=== PATIENT | male | born 1980 | race Caucasian/White ===

== ENCOUNTER 2019-07-03 18:33 | Emergency (ER) | payer BC, SELFPAY ==
[2019-07-03 18:34] VITALS: BP 139/110; PULSE 103; RESP 18; TEMP 37.3; O2SAT 96
[2019-07-03 18:35] VITALS: BP 139/110; PULSE 99; RESP 18; TEMP 37.3; O2SAT 97; BMI 30.7
--- NOTE | 2019-07-03 19:04 | EKG12_ITS ---
Test Reason : PALPS Blood Pressure : / mmHG Vent. Rate : 088 BPM Atrial Rate : 088 BPM P-R Int : 162 ms QRS Dur : 096 ms QT Int : 358 ms P-R-T Axes : 041 031 027 degrees QTc Int : 433 ms Normal sinus rhythm Possible Inferior infarct , age undetermined Abnormal ECG Confirmed by GETACHEW CORNELL ([id number]), primer expeditor and drier LADONNA FISHER ([id number]) on 07/06/2019 9:32:04 AM Referred By: CHIRAG Confirmed By:GETACHEW CORNELL
[2019-07-03 19:21] LABS: Absolute Lymphocyte Count 2.28 X10^3/uL (0.83-4.51); Basophil# 0.03 X10^3/uL; Basophil% 0.4 % (0-1); Eosinophil# 0.14 X10^3/uL; Eosinophils% 1.9 % (0-5); Hematocrit 44.4 % (40-54); Hemoglobin 15.1 g/dL (13.0-16.5); Lymphocyte # 2.28 X10^3/ul (4.0); Lymphocyte % 30.9 % (19-41); Mean Corpuscular Hgb 29.7 pg (27.0-32.0); Mean Corpuscular Volume 87.4 fL (80-94); Mean Platelet Vol. 10.5 fl (6.2-12.0); Monocyte# 0.94 X10^3/uL; Monocyte% 12.8 % (0-10); NRBC Flagged by Analyzer 0 % (0-5); Neutrophil # 3.95 X10^3/uL (2.7-7.7); Neutrophil % 53.6 % (47-70); Platelet Count 243 K/mm3 (150-450); RBC Distribution Width CV 12.6 % (11.6-14.6); RBC Distribution Width SD 40.5 fl (35.1-43.9); Red Blood Count 5.08 M/mm3 (4.6-6.2); White Blood Count 7.4 K/mm3 (4.4-11.0)
--- NOTE | 2019-07-03 19:25 | RAD_ITS ---
STUDY: X-RAY CHEST REASON FOR EXAM: Male, 39 years old. CHEST PAIN TECHNIQUE: PA and lateral views of the chest. COMPARISON: None. FINDINGS: The lungs are clear and expanded. There is no demonstrated pleural abnormality. Normal size heart. Normal mediastinum and meme. Normal visualized pulmonary arteries. Normal visualized aortic arch and descending thoracic aorta. Normal visualized thoracic spine. Normal visualized ribs, clavicles, and shoulders. There is no demonstrated abnormality of the visualized soft tissue structures of the upper abdomen. RAD/Chest PA and Lateral IMPRESSION: Normal x-ray examination of the chest. Electronically Signed: John Garcia DO at 20:13 EST Tel , Service support ,
[2019-07-03 19:45] LABS: Anion Gap 6 (5-15); BUN 12 mg/dL (7-18); BUN/Creat Ratio 10.8 RATIO (10-20); Calcium,Total 8.9 mg/dL (8.5-10.1); Chloride 109 mmol/L (98-107); Creatinine, Serum 1.11 mg/dL (0.70-1.30); EST Glomerular Filtration Rate 78 mL/min (>60); Est Glom Filt Rate - Afr Amer 94 mL/min (>60); Estimated Creatinine Clearance 91.34 ml/min; Glucose 79 mg/dL (74-106); Potassium 3.5 mmol/L (3.5-5.1); Sodium Level 143 mmol/L (136-145); Thyroid Stim Hormone (TSH) 2.03 uIU/mL (0.358-3.74)
[2019-07-03 20:25] VITALS: BP 138/93; BP 140/91; BP 142/98; PULSE 80; PULSE 87; PULSE 90
--- NOTE | 2019-07-03 21:50 | ED.VIS.GEN ---
History of Present Illness Chief Complaint: Palpitations Informant: Patient Onset: Today Context: Sudden Onset Timing: Intermittent Narrative: Patient is a 39-year-old male with history of DVT, on Eliquis presenting with an episode of palpitations. Patient states he felt fine earlier today. He got home from work had a beer and all of a sudden he felt hot, flushed had palpitations and his face was red. He denies associated chest pain. He took his temperature is 102.8. He not take any meds prior to arrival. He denies any associated muscle aches. He notes his knees did have the flu recently. Patient came to the emergency room to be evaluated further. First he went to the urgent care but was then sent to the emergency room. He notes he has been on Eliquis for about a month for DVTs in his right lower leg. He has not missed any doses. He is never had an episode like this before. He denies any other complaints right now. Right now he states he is feeling much better. Past Medical History - Allergies and Home Meds Allergies/Adverse Reactions: Allergies kiwi Allergy (Verified 07/03/19 18:39) Angioedema LIDOCAINE TOPICAL Adverse Reaction (Uncoded 07/03/19 18:39) Other Primary Care Physician: Don Boo MD [Primary Care Provider] - Past Medical History: - - DVT Surgical History: noncontributory Lives: Spouse/ Significant Other, With Family Smoking Status: Never smoker Review of Systems General: Reports: Sweats. Denies: Chills, Fever Eyes: Denies: Visual changes - bilaterally, Diplopia ENT: Denies: Rhinorrhea, Sore throat Cardiovascular: Reports: Palpitations. Denies: Chest pain Respiratory: Denies: Dyspnea, Cough, Dyspnea on exertion Gastrointestinal: Denies: Abdominal pain, Nausea, Vomiting, Diarrhea, Melena, Hematochezia Genitourinary: Denies: Dysuria, Hematuria, Frequency Musculoskeletal: Reports: Swelling - Mild?right lower extremity x1 month. Denies: Back pain, Extremity Pain Skin: Reports: - - Facial flushing. Denies: Rash, Wounds Neurological: Denies: Headache, Weakness, Numbness Physical Exam Vital Signs/Narrative: Vital Signs Temp Pulse Pulse Pulse Pulse Resp BP 07/03/19 20:25 87 80 90 07/03/19 18:35 99.1 F 99 18 139/110 H 07/03/19 18:34 99.1 F 103 H 18 139/110 H BP BP BP Pulse Ox 07/03/19 20:25 138/93 H 142/98 H 140/91 H 07/03/19 18:35 97 07/03/19 18:34 96 Inital Vital Signs reviewed: Yes General: Well nourished, Well developed, No Acute Distress Head: Normocephalic, Atraumatic Eyes: Perrl, EOMI ENT: Moist mucous membranes, No rhinorrhea, TM's clear Neck: Supple, Nontender Cardiovascular: Regular rate, Regular rhythm, No murmurs Respiratory: No distress, CTA bilaterally, Chest nontender Abdomen: Soft, Nontender, Nondistended, Normal bowel sounds Back: Nontender, Normal Inspection Extremities: Nontender, No edema. Negative for: Edema, Calf Tenderness Skin: Normal color, No rash Neurological: Alert, Oriented x3, Cranial nerves II-XII grossly intact, Normal Strength, Normal Sensation Psychological: Normal affect, Normal Mood Diagnostic/Tx/Re-eval Chest X-Ray - ED: 2 View, Read by ED Physician, Read by Radiologist, No Acute Disease Clinical Impression(s) from Imaging Studies Chest X-Ray 07/03/19 19:25 IMPRESSION: Normal x-ray examination of the chest. Electronically Signed: John Garcia DO at 20:13 EST Tel , Service support , Laboratory Data 07/03/19 07/03/19 19:00 19:00 WBC 7.4 RBC 5.08 Hgb 15.1 Hct 44.4 MCV 87.4 MCH 29.7 MCHC 34.0 RDW Std Deviation 40.5 RDW Coeff of Noah 12.6 Plt Count 243 MPV 10.5 Immature Gran % (Auto) 0.400 Neut % (Auto) 53.6 Lymph % (Auto) 30.9 [place] % (Auto) 12.8 H Eos % (Auto) 1.9 Baso % (Auto) 0.4 Absolute Neuts (auto) 4.0 Absolute Lymphs (auto) 2.28 Nucleated RBC % 0 Sodium 143 Potassium 3.5 Chloride 109 H Carbon Dioxide 28.0 Anion Gap 6 BUN 12 Creatinine 1.11 Estim Creat Clear Calc 91.34 Est GFR (MDRD) Af Amer 94 Est GFR (MDRD) Non-Af 78 BUN/Creatinine Ratio 10.8 Glucose 79 Calcium 8.9 Troponin I < 0.015 TSH 2.03 - Rhythm Strip Rhythm Strip: Sinus Rhythm Rate: 88 Ectopy: None - Medical Decision Making Patient is evaluated after an episode of palpitations and flushing. He is currently asymptomatic. He has normal vital signs. He appears nontoxic and in no acute distress. I did check CBC, BMP, EKG, troponin, TSH and chest x-ray. These are all unremarkable do not explain his symptoms. His flu swab is negative. I do not suspect this is a PE. For 1 patient is not have any associated chest pain or shortness of breath. In addition he has been compliant with his Eliquis for a month now. He is not hypoxic and has normal vital signs. He did show me a picture of his face when this episode happened and he was quite red and almost splotchy. He is not had any new medications to suggest an allergic reaction. Patient is counseled that at this time I think he is stable for outpatient follow-up. He is counseled that the differential does include a pheochromocytoma. He will follow-up with his PCP. Patient is counseled on signs and symptoms requiring return to the emergency room. Patient verbalizes agreement and understand this plan. Patient discharged home in stable and improved condition. ED Disposition - Plan for ED Patient: Disposition: Home or Assisted Living Diagnosis: Palpitations with regular cardiac rhythm Instructions: Palpitations Referrals: oDn Boo MD [Primary Care Provider] - Additional Instructions: You have been seen for an episode of flushing and palpitations. Your work-up today was normal. Not sure what caused it. I do think you are stable to follow-up with your primary care doctor. Return if you develop chest pain, shortness of breath or worsening symptoms. Ask your primary care doctor for further evaluation for palpitations, cardiac arrhythmia or possibly a pheochromocytoma would be indicated.
[2019-07-03 22:15] VITALS: BP 147/95; PULSE 80; RESP 16; O2SAT 100
== END 2019-07-03 22:31 | disposition home or self-care (01) ==
PROVIDERS: Emergency Provider Emergency Medicine; PCP Family Medicine
DX: R00.2 Palpitations (principal); Z86.718 Personal history of other venous thrombosis and embolism; Z79.02 Long term (current) use of antithrombotics/antiplatelets
CPT/HCPCS: 71046; 80048; 84443; 84484; 85025; 87804; 93005; 99285

== ENCOUNTER 2019-12-18 17:06 | Emergency (ER) | payer BC, SELFPAY ==
[2019-12-18 17:07] VITALS: BP 137/83; PULSE 85; RESP 16; TEMP 36.9; O2SAT 97; BMI 29.5
--- NOTE | 2019-12-18 17:32 | US_ITS ---
STUDY: VENOUS DOPPLER ULTRASOUND - RIGHT LOWER EXTREMITY REASON FOR EXAM: Male, 39 years old. SWELLING, REDNESS TECHNIQUE: Ultrasound evaluation of the deep vein system to include castillo-scale imaging and compression was performed. Castillo-scale imaging and Doppler sonographic evaluation, including duplex spectral analysis and qualitative color flow sonography, was performed. COMPARISON: None. FINDINGS: Common Femoral Vein: Normal compression, spontaneity and augmentation. Normal color Doppler. Common Femoral Vein/Greater Saphenous Junction: Normal compression, spontaneity and augmentation. Normal color Doppler. Deep Femoral Vein: Normal compression, spontaneity and augmentation. Normal color Doppler. Femoral Proximal: Normal compression, spontaneity and augmentation. Normal color Doppler. Femoral Middle: Normal compression, spontaneity and augmentation. Normal color Doppler. Femoral Distal: Normal compression, spontaneity and augmentation. Normal color Doppler. Popliteal Vein: Normal compression, spontaneity and augmentation. Normal color Doppler. A nonocclusive clot is present in the tibioperoneal trunk just above the bifurcation into the posterior tibial and peroneal veins. Posterior Tibial Vein: Normal compression, spontaneity and augmentation. Normal color Doppler. Peroneal Vein: Normal compression, spontaneity and augmentation. Normal color Doppler. The left common femoral vein was evaluated and is normal. US/Venous Duplex Imag/Limited/Uni IMPRESSION: 1. A nonocclusive clot is present in the tibioperoneal trunk just above the bifurcation into the posterior tibial and peroneal veins. N.B. : The above information has been verbally conveyed by Marcellus Aquino MD to Jeffrey Albert MD, on 12/18/2019 19:54:21 (ET). Electronically Signed: Marcellus Aquino MD at 19:55 EDT , Service support ,
--- NOTE | 2019-12-18 18:08 | ED.VISSUMM ---
- ER Visit Summary Date of Service: 12/18/19 Chief Complaint: Right calf pain History of Present Illness: The patient is a [address] Boo. He reports that he has a history of DVT in May of this year. He stopped taking his Eliquis 2 months later because of appointments that were canceled due to COVID-19. Patient reports that he has right calf pain that began again 3 days ago. He describes as an aching charley horse. 6 out of 10 when he walks 1 out of 10 at rest. Denies any paresthesias or weakness. Denies any chest pain or shortness of breath. Physical Examination: Vitals: Stable. Afebrile. General: Well-nourished and well-developed. Head: Normocephalic atraumatic. Neck: Supple, no lymphadenopathy. No JVD. Nontender. Cardiovascular: Regular rate and rhythm. No murmurs. Respiratory: No respiratory distress. Clear to auscultation bilaterally. Abdominal: Soft, nontender, nondistended, normal bowel sounds. No guarding, rebound, or peritoneal signs. Back: Nontender. Extremities: Mild tenderness palpation of his right calf with 1+ pitting edema. He has a 2+ dorsalis pedis pulse. Skin: Normal color, no rash. Neurologic: Alert and oriented ?3. Cranial nerves II through XII are intact. Normal strength and sensation. Psych: Normal affect. Test Results: Clinical Impression(s) from Imaging Studies Venous Duplex 12/18/19 17:32 IMPRESSION: 1. A nonocclusive clot is present in the tibioperoneal trunk just above the bifurcation into the posterior tibial and peroneal veins. N.B. : The above information has been verbally conveyed by Marcellus Aquino MD to Jeffrey Albert MD, on 12/18/2019 19:54:21 (ET). Electronically Signed: Marcellus Aquino MD at 19:55 EDT , Service support , ADDENDUM: 12/18/192001 IMPRESSION: 1. A nonocclusive clot is present in the tibioperoneal trunk just above the bifurcation into the posterior tibial and peroneal veins. N.B. : The above information has been verbally conveyed by Marcellus Aquino MD to Jeffrey Albert MD, on 12/18/2019 19:54:21 (ET). Electronically Signed: Marcellus Aquino MD at 19:55 EDT , Service support , Emergency Department Course and Treatment: Patient was treated with Eliquis. He refused pain medications. Treatment Plan: Patient was discussed with Dr. Kennedy. Given the recurrent nature of this clot he will be placed on Eliquis. Instructed to follow-up with Dr. Boo in a week for another exam. Return to the emergency department for any worsening symptoms. Disposition: To home in improved and stable condition. Impression: 1. Recurrent DVT. This note was generated with [employer] dictation software. It may contain incorrect words, spelling, and punctuation that were not noted in review of the chart prior to signing ED Disposition - Plan for ED Patient: Disposition: Home or Assisted Living Instructions: ED DVT Prescriptions: Apixaban [Eliquis] 5 mg PO BID #74 tab Prescription Printed Referrals: Don Boo MD [Primary Care Provider] - 1 Week
[2019-12-18] MEDS: APIXABAN 5 MG TABLET 10 MG PO (18:30)
[2019-12-18 18:32] VITALS: BP 137/83; PULSE 85; RESP 16; TEMP 36.9; O2SAT 97
== END 2019-12-18 18:44 | disposition home or self-care (01) ==
LOC: ED 18:32
PROVIDERS: Emergency Provider Emergency Medicine; PCP Family Medicine
DX: I82.451 Acute embolism and thrombosis of right peroneal vein (principal); I82.441 Acute embolism and thrombosis of right tibial vein; Z86.718 Personal history of other venous thrombosis and embolism
CPT/HCPCS: 93971; 99283

== ENCOUNTER → 2020-08-12 15:11 | Outpatient (CLI) | payer BC, SELFPAY ==
--- NOTE | 2020-08-12 15:14 | VDLE_ITS ---
Reason For Study: swelling, pain, History of multiple DVT's RIGHT GSV is normal. CFV is compressible, spontaneous, phasic, competent and demonstrates normal augmentation. FV is compressible, spontaneous, phasic, competent and demonstrates normal augmentation. POP V is compressible, spontaneous, phasic, competent and demonstrates normal augmentation. PTV is compressible. RT PerV is compressible. T/P Trunk and Soleus V are noncompressible. Varicose vein on the lateral portion of the lower leg is dilated and noncompressible. Procedure This is a venous duplex using B-mode, color flow and spectral Doppler. Exam performed in department. The exam was abbreviated due to the COVID 19 protocol. The exam was diagnostic. A preliminary report was called and/or faxed to Dr. Wilkins. Interpretation Summary Acute deep vein thrombosis is noted in the right tibio-peroneal trunk. Acute deep vein thrombosis is noted in the right soleus vein. The remainder of the right lower extremity deep venous system is patent and compressible. Valvular competence appears intact within the proximal deep venous system on the right . The right great saphenous vein appears patent and compressible segmentally. Acute superficial thrombophlebitis is noted involving a superficial varicosity on the lateral aspect of the distal right lower extremity. Ordering Physician: Gigi Wilkins Performed By: Tin Herron RVT
== END ==
LOC: CVS 15:14
PROVIDERS: PCP Family Medicine; Referring Provider Family Medicine; Visit Provider Family Medicine
DX: I82.409 Acute embolism and thrombosis of unspecified deep veins of unspecified lower extremity (principal)
CPT/HCPCS: 93971

== ENCOUNTER 2020-08-13 10:55 | Emergency (ER) | payer BC, SELFPAY ==
[2020-08-13] VITALS (7 sets, daily range): BP systolic 139–159; BP diastolic 93–112; PULSE 18–77; RESP 16–23; TEMP 37.1; O2SAT 97–100; BMI 30.9
--- NOTE | 2020-08-13 10:57 | EKG12_ITS ---
Test Reason : CP Blood Pressure : / mmHG Vent. Rate : 076 BPM Atrial Rate : 076 BPM P-R Int : 154 ms QRS Dur : 090 ms QT Int : 372 ms P-R-T Axes : 032 031 023 degrees QTc Int : 418 ms Normal sinus rhythm Inferior infarct , age undetermined Abnormal ECG Confirmed by NETTA HASTINGS, BREONNA ([id number]), editor dictionary UZMA THOMPSON ([id number]) on 08/14/2020 12:45:39 PM Referred By: Gigi Wilkins Confirmed By:BREONNA CHADWICK MD
--- NOTE | 2020-08-13 11:06 | CT_ITS ---
STUDY: CTA CHEST REASON FOR EXAM: Male, 40 years old. PE RADIATION DOSAGE (If Supplied By Facility): CTDIvol = ( 13.77 ) mGy, DLP = ( 436.94 ) mGycm TECHNIQUE: The examination was performed with the intravenous administration of IV 100mL Isovue-370. Post-processing of the angiographic images was performed, with multiplanar reformation and 3D reconstruction. Individualized dose optimization techniques were used for this CT. COMPARISON: None. FINDINGS: There are several small nonocclusive intraluminal filling defects in branches of the right lower lobe pulmonary artery. Normal thoracic aorta and visualized great vessels. There is no demonstrated aortic dissection. Normal heart and pericardium. Normal mediastinum. Normal hilar regions. Normal visualized trachea and bronchi. The lungs are well expanded. Mild degree of bibasilar atelectasis. Normal pleura. Normal chest wall structures. Normal osseous structures. Small hiatal hernia. CT/CTA Chest W/WO Contrast IMPRESSION: Nonobstructive pulmonary emboli in branches of the posterior medial segment of the right lower lobe. Increased markings at the lung bases suggestive of a atelectasis. Electronically Signed: Amos Vilchis MD at 12:20 EDT , Service support ,
--- NOTE | 2020-08-13 11:10 | ED.DCSUM_ITS ---
- ER Visit Summary Date of Service: 08/13/20 Chief Complaint: Chest pain History of Present Illness: The patient is a [address] Gigi Wilkins. He is on Eliquis for DVTs. He has never had a PE. He had a right lower extremity Doppler yesterday that shows he has a DVT in his right tibioperoneal trunk as well as right soleus. He states his last dose of Eliquis was this morning. Patient reports she has chest pain that began 15 to 20 minutes ago while he was at rest. Is a sharp pain Zeta 10 at worst and 6 out of 10 currently. States it is worsened by deep breaths. Some change with exertion. Is relieved by nothing. Reports this made him nauseated, diaphoretic, and short of breath. Physical Examination: Vitals: Stable. Afebrile. General: Well-nourished and well-developed. Head: Normocephalic atraumatic. Neck: Supple, no lymphadenopathy. No JVD. Nontender. Cardiovascular: Regular rate and rhythm. No murmurs. Respiratory: No respiratory distress. Clear to auscultation bilaterally. Abdominal: Soft, nontender, nondistended, normal bowel sounds. No guarding, r ebound, or peritoneal signs. Back: Nontender. Extremities: Mild tenderness palpation of the right calf, no edema. Skin: Normal color, no rash. Neurologic: Alert and oriented ?3. Cranial nerves II through XII are intact. Normal strength and sensation. Psych: Normal affect. Test Results: EKG is sinus at [address] changes. There is a Q wave in lead III. This is unchanged from July [id number]. CBC shows monocytes of 12. Chem-7 is normal. INR is 1.2. PTT is 26.8. Troponin is less than 0.015. Clinical Impression(s) from Imaging Studies Chest CTA 08/13/20 11:06 IMPRESSION: Nonobstructive pulmonary emboli in branches of the posterior medial segment of the right lower lobe. Increased markings at the lung bases suggestive of a atelectasis. Electronically Signed: Amos Vilchis MD at 12:20 EDT , Service support , Emergency Department Course and Treatment: Patient had an IV placed. He was given a liter normal saline. Is given morphine and Zofran IV. He is resting more comfortably. Treatment Plan: Patient was discussed with Dr. Davis who has seen him previously. Given the fact that he has developed an acute DVT on Eliquis he would like him changed to Lovenox. He also feels that the patient needs an IVC filter. Patient was then discussed with Dr. Zi Napier who currently has him in the [facility] and is placing the IVC filter. Patient was discussed with case management. His co-pay for Lovenox would be $230 per month. He states that he cannot afford this. He was then discussed with Dr. Davis again who asked that the patient be admitted to have case management make further arrangements for this. Case management in the emergency department is spoken with case management upstairs and there really is nothing further to offer her as far as help with this. I do not think that admitting him to the hospital is going to change his ability to pay for this or to get it covered. I discussed this with the patient again. He reports that he will be able to get the first 2 weeks of this failed. He has seen a vascular surgeon at [facility] and has an appointment on August to have a vein in his leg that has a vascular incompetence removed. Patient will be discharged with prescription for Lovenox and 10 Percocet. Instructed to follow-up with Dr. Davis as soon as possible for further evaluation and treatment. Return to the emergency department for any worsening symptoms. Disposition: To home in improved and stable condition. Impression: 1. PE. 2. Acute DVT right lower extremity despite Eliquis. This note was generated with [employer] dictation software. It may contain incorrect words, spelling, and punctuation that were not noted in review of the chart prior to signing ED Disposition - Plan for ED Patient: Instructions: Pulmonary Embolism Prescriptions: Enoxaparin [Lovenox] 100 mg SC BID #60 syringe Prescription Printed Oxycodone HCl/Acetaminophen [Percocet 5/325] 1 tablet PO Q6H PRN PRN 3 Days #12 tablet PRN Reason: Pain Prescription Printed Referrals: Elpidio Davis DO [STAFF PHYSICIAN] - As soon as possible
[2020-08-13] MEDS: Morphine 4 MG/ML Syringe IV ×4 (11:14→19:02)
[2020-08-13] MEDS: 0.9% Normal Saline 1,000 ML 1000 ML IV (11:14)
[2020-08-13] MEDS: Ondansetron 4 MG/2 ML Vial IV (11:14)
[2020-08-13 11:15] LABS: Absolute Lymphocyte Count 1.55 X10^3/uL (0.83-4.51); Absolute Neutrophil Count 4.3 X10^3/uL (2.0-7.7); Basophil# 0.05 X10^3/uL; Basophil% 0.7 % (0-1); Eosinophil# 0.11 X10^3/uL; Eosinophils% 1.6 % (0-5); Hematocrit 47.6 % (40-54); Lymphocyte # 1.55 X10^3/ul (4.0); Lymphocyte % 22.4 % (19-41); Mean Corp Hgb Conc 33.6 g/dL (32-36); Mean Corpuscular Hgb 30.1 pg (27.0-32.0); Mean Corpuscular Volume 89.6 fL (80-94); Mean Platelet Vol. 10.6 fl (6.2-12.0); Monocyte# 0.86 X10^3/uL; Monocyte% 12.4 % (0-10); NRBC Flagged by Analyzer 0 % (0-5); Neutrophil # 4.34 X10^3/uL (2.7-7.7); Neutrophil % 62.6 % (47-70); Platelet Count 245 K/mm3 (150-450); RBC Distribution Width CV 12.2 % (11.6-14.6); RBC Distribution Width SD 39.8 fl (35.1-43.9); Red Blood Count 5.31 M/mm3 (4.6-6.2); White Blood Count 6.9 K/mm3 (4.4-11.0)
[2020-08-13 11:25] LABS: International Normalized Ratio 1.2; Partial Thromboplast Time 26.8 Seconds (24.1-36.2); Prothrombin Time (Protime)PT. 14.4 SECONDS (11.7-14.9)
[2020-08-13 11:29] LABS: Anion Gap 3 (5-15); BUN 12 mg/dL (7-18); BUN/Creat Ratio 12.2 RATIO (10-20); Calcium,Total 9.4 mg/dL (8.5-10.1); Chloride 105 mmol/L (98-107); Creatinine, Serum 0.98 mg/dL (0.70-1.30); EST Glomerular Filtration Rate 89 mL/min (>60); Est Glom Filt Rate - Afr Amer 108 mL/min (>60); Estimated Creatinine Clearance 105.65 ml/min; Glucose 100 mg/dL (74-106); Potassium 4.1 mmol/L (3.5-5.1); Sodium Level 139 mmol/L (136-145)
[2020-08-13] MEDS: Enoxaparin 100 MG/ML Syringe SC (13:06)
--- NOTE | 2020-08-13 13:10 | CM.ED ---
SOCIAL WORK Referral Source: Dr. Persaud Reason for Consult: Prescription coverage Dr. Persaud inquiring if Lovenox is covered by patient's insurance. Met with patient in room. Patient voiced concerns with returning home. Patient states I've been dealing with blood clot for 18 months. Emotional support provided and informed this worker will relay concerns to Dr. Persaud. Patient reports OK for script to be filled through [facility]. Prior to exiting room patient c/o pain. Nursing updated. Rx obtained and sent to pharmacy to check coverage/cost. Call to Susie with [facility] to update. Sae Werner MSW, [employer]ENCH POLISHER
--- NOTE | 2020-08-13 13:30 | CM.ED ---
Addendum entered by Oxana Werner 08/13/20 17:33: Patient requests all scripts be filled with [facility] and agreeable to cost. Nurse sent scripts to pharmacy. Original Note: SOCIAL WORK Received call from Susie with [facility]. Per Susie, insurance covers 30 syringes of Lovenox in 25 days (15 day supply). Co-pay for patient is $113.16. Updated patient. Patient requesting other options as he states unable to afford medication. Dr. Persaud updated. Plan: MONICA Werner, MEDICAL EDUCATION SPECIALIST, COURT ORDERLY
--- NOTE | 2020-08-13 15:03 | PCM.HP.STD ---
History of Present Illness Date of Admission: 08/13/20 Chief Complaint: Pulmonary Embolism. Failed anticoagulation. In need of IVC filter placement. The patient is a 40 year old M who presented with chest pain which started this morning. Patient went to work and was not feeling well. He noted difficulty with taking deep breaths. He was brought to the ED by one of his co-workers. Patient states he has been chronically dealing with blood clots in the right lower extremity for 18 months. His last u/s duplex of the right lower extremity showed no acute DVT in March of 2020. Patient was on Eliquis BID since the beginning of the diagnosis of acute DVT. Patient had panel of lab tests completed which demonstrated elevated factor VIII and homocysteine levels. Patient was to remain on Eliquis. Despite being on Eliquis, patient's CTA from today showed a PE in the right lower lobe. Patient has been evaluated by Dr. Davis. He was sent to Dr. Abreu for a venogram in April 2020. 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 Dr. Harp has the patient scheduled for a saphenous vein procedure on September 26. Past Medical History Allergies kiwi Allergy (Verified 08/13/20 10:55) Angioedema LIDOCAINE TOPICAL Adverse Reaction (Uncoded 12/18/19 17:10) Other Home Medications: Ambulatory Orders Medication Instructions Recorded Apixaban [Eliquis] 5 mg PO BID #74 tab 12/18/19 Enoxaparin [Lovenox] 100 mg SC BID #60 syringe 08/13/20 Multivitamin [Daily Value] 1 each PO DAILY 08/13/20 Surgical History: noncontributory Lives: Spouse/ Significant Other Smoking Status: Never smoker Tobacco Use: Chew - *Family History Maternal History Items: No pertinent history Paternal History Items: No pertinent history Review of Systems Constitutional: Reports: Weakness HEENT: Denies: Head Aches, Sinus Congestion, Sinus Drainage Cardiovascular: Reports: Chest Pain Respiratory: Reports: Shortness of Breath Gastrointestinal: Denies: Abdominal Pain, Nausea, Vomiting Genitourinary: Denies: Dysuria Musculoskeletal: Reports: - - right calf pain. Denies: Joint Pain, Joint Tenderness Skin: Denies: Rash, Wounds Neurological: Denies: Numbness, Tingling, Focal weakness Psychiatric: Denies: Anxiety, Depression, Homicidal Ideations, Suicidal Ideations Hematologic/ Lymphatic: Denies: Easy Bruising, Easy Bleeding VTE Information - Inpt Only VTE Present on Admission: Yes VTE Pharm Prophylaxis ordered?: Yes - Physical Exam Vitals/I&O's: Vital Signs Temp Pulse Resp BP Pulse Ox 98.7 F 74 16 159/105 H 99 08/13/20 10:56 08/13/20 13:04 08/13/20 13:04 08/13/20 13:04 08/13/20 13:04 Oxygen Flow Rate (L/min) 2 Oxygen Delivery Method Room Air Weight: 222 lb 0.088 oz Body Mass Index (BMI) 30.9 Intake and Output for Last 24 Hours 08/11/20 08/12/20 08/13/20 23:59 23:59 23:59 Intake Total 1000 / 1000 Balance 1000 / 1000 General: Alert, Oriented x3, Cooperative HEENT: Atraumatic, PERRLA, EOMI, Normocephalic Neck: Supple, No JVD, Negative Carotid Bruits Lungs: Clear to auscultation, Normal air movement Cardiovascular: Regular rate, No murmurs Abdomen: Bowel Sounds Present, Soft, Non Tender Extremities: No edema, Capillary Refill Less than 3 Seconds Skin: No rashes, No breakdown Musculoskeletal: No Tenderness to Palpation of Joints or Extremities Neurological: Neuro grossly intact Psych/Mental Status: Normal Affect, Appropriate Laboratory Results 08/13/20 11:00: WBC 6.9, RBC 5.31, Hgb 16.0, Hct 47.6, MCV 89.6, MCH 30.1, MCHC 33.6, RDW Std Deviation 39.8, RDW Coeff of Noah 12.2, Plt Count 245, MPV 10.6, Immature Gran % (Auto) 0.300, Neut % (Auto) 62.6, Lymph % (Auto) 22.4, [place] % (Auto) 12.4 H, Eos % (Auto) 1.6, Baso % (Auto) 0.7, Absolute Neuts (auto) 4.3, Absolute Lymphs (auto) 1.55, Nucleated RBC % 0 08/13/20 11:00: PT 14.4, INR 1.2, APTT 26.8 08/13/20 11:00: Sodium 139, Potassium 4.1, Chloride 105, Carbon Dioxide 31.0, Anion Gap 3 L, BUN 12, Creatinine 0.98, Estim Creat Clear Calc 105.65, Est GFR (MDRD) Af Amer 108, Est GFR (MDRD) Non-Af 89, BUN/Creatinine Ratio 12.2, Glucose 100, Calcium 9.4, Troponin I < 0.015 Assessment/Plan I am seeing this patient in conjunction with Dr. Napier. He will independently evaluate this patient. Impression: Newly diagnosed Right lower lobe pulmonary embolism. Failed outpatient anticoagulation. History of right lower extremity DVT. In need of IVC filter placement. Plan: Discussed patient with Dr. Napier. Dr. Napier will plan to perform an inferior vena cava filter placement in the pathology laboratory aide. Procedure details, risks and benefits have been explained. Patient has had the opportunity to ask and have questions answered. Patient verbally understands and agrees with the plan. Discussed with the ED doc who will contact the hospitalist for admission after the procedure. Thank you for allowing us to participate in this patient's care. Office Visits / Consults: [id number] IP Consult L3
--- NOTE | 2020-08-13 16:15 | PCM.OPRPT ---
Problem List (1) Pulmonary embolism Status: Acute Qualifiers: Pulmonary embolism type: multiple subsegmental (without acute cor pulmonale) Qualified Code(s): I26.94 - Multiple subsegmental pulmonary emboli without acute cor pulmonale Report of Operation Date of Procedure: 08/13/20 Pre-Operative Diagnosis: Deep venous thrombosis with acute pulmonary embolization despite anticoagulation Post-Operative Diagnosis: Deep venous thrombosis with pulmonary embolization despite anticoagulation Surgery/Procedure Performed:: Inferior venacavogram with inferior vena cava [place] filter placement Description of Surgical Findings:: Timeout and informed consent obtained. 40-year-old gentleman was taken to the special procedures lab placed upon the table. The right neck was sterilely prepped and draped. Under ultrasound guidance 2% lidocaine was instilled. Then under ultrasound guidance micropuncture needle was used to gain access to the right internal jugular vein followed by Seldinger wire advancement. Micropuncture sheath inserted. 035 J-wire was inserted. 5 [place] short sheath was inserted. A universal flush catheter was advanced using an 035 J-wire into the very proximal right common iliac vein. Utilizing Isovue contrast the rate of 15 cc a second for 20 cc of diluted contrast and inferior venacavogram was obtained. The inferior venacavogram demonstrates patent proximal bilateral common iliacs patent inferior vena cava patent bilateral renal veins. The inferior vena cava was measured at 25 mm in diameter. The flush catheter was removed over a wire. Serial dilatation was performed with a 9 [place] sheath and then the 8 [place] deployment sheath was placed over the 035 J-wire. The wire and deploying dilator was removed. The jugular [place] filter was advanced. It was closely at the hook was on view. It was deployed below the level of the renal veins. Good upright positioning was achieved. The deploying device was removed. Pressure was held for hemostasis. Sterile dressings applied. He tolerated the procedure well without apparent complication. He was subsequently taken back to the emergency room in satisfactory edition no apparent complication. Ongoing medical care recommended. Zi Napier M.D., F.A.C.S. Type of Anesthesia:: IV Sedation, Local
--- NOTE | 2020-08-13 16:19 | DCINST_ITS ---
Allergies/Adverse Reactions: Allergies kiwi Allergy (Verified 08/13/20 10:55) Angioedema LIDOCAINE TOPICAL Adverse Reaction (Uncoded 12/18/19 17:10) Other Medications to take at Discharge Apixaban [Eliquis] 5 mg PO BID #74 tab 12/18/19 Enoxaparin [Lovenox] 100 mg SC BID #60 syringe 08/13/20 Multivitamin [Daily Value] 1 each PO DAILY 08/13/20 The following prescriptions were given: Enoxaparin [Lovenox] 100 mg SC BID #60 syringe Prescription Printed Primary Care Physician: Gigi Wilkins MD [Primary Care Provider] - Test Results: Test results from this visit will be discussed in further detail at your follow- up appointment, if applicable. Please Follow Up With: Zi Napier MD - [phone] When: Call when instructed for filter removal.
--- NOTE | 2020-08-13 17:02 | DCINST.ED_ITS ---
ED Disposition - Plan for ED Patient:
--- NOTE | 2020-08-13 17:02 | ED.DEP ---
ED Disposition - Plan for ED Patient:
== END 2020-08-13 19:18 | disposition home or self-care (01) ==
LOC: ED 11:49 → AC 15:40 → ED 17:07
PROVIDERS: Emergency Provider Emergency Medicine; PCP Family Medicine
DX: I26.99 Other pulmonary embolism without acute cor pulmonale (principal); I82.451 Acute embolism and thrombosis of right peroneal vein; I82.461 Acute embolism and thrombosis of right calf muscular vein; Z79.02 Long term (current) use of antithrombotics/antiplatelets
CPT/HCPCS: 37191; 71275; 76937; 80048; 84484; 85025; 85610; 85730; 93005; 96361; 96372; 96374; 96375; 96376; 99152; 99283; J7030; J7040; Q9967; A4216; C1769; C1880; J2405

== ENCOUNTER → 2020-12-15 12:16 | Outpatient (CLI) | payer BC, SELFPAY ==
[2020-08-13 10:56] VITALS: BMI 30.9
--- NOTE | 2020-12-15 12:20 | RAD_ITS ---
STUDY: X-RAY CHEST REASON FOR EXAM: Male, 40 years old. LLL PNEUMONIA TECHNIQUE: PA and lateral views of the chest. COMPARISON: Comparison is made with prior study dated 07/03/2019. FINDINGS: The lungs are clear and expanded. There is no demonstrated pleural abnormality. Normal size heart. Normal mediastinum and meme. Normal visualized pulmonary arteries. Normal visualized aortic arch and descending thoracic aorta. There is demineralization of the osseous structures. Increased kyphosis. Normal visualized ribs, clavicles, and shoulders. There is no demonstrated abnormality of the visualized soft tissue structures of the upper abdomen. RAD/Chest PA and Lateral IMPRESSION: No acute abnormality is seen. Electronically Signed: Amos Vilchis MD at 12:29 EDT , Service support ,
== END ==
LOC: MTRAD 12:18
PROVIDERS: PCP Family Medicine; Referring Provider Family Medicine; Visit Provider Family Medicine
DX: J18.9 Pneumonia, unspecified organism (principal); R05 Cough
CPT/HCPCS: 71046; 87633; 87635; U0005; U0003

== ENCOUNTER → 2021-01-06 15:05 | Outpatient (CLI) | payer BC, SELFPAY ==
[2020-08-13 10:56] VITALS: BMI 30.9
--- NOTE | 2021-01-06 15:17 | CT_ITS ---
STUDY: CT BRAIN WITHOUT CONTRAST REASON FOR EXAM: Male, 40 years old. MENTAL STATUS CHANGES,ONCOUMADIN,POSSIBLE SYNCOPE THIS MORNING RADIATION DOSAGE (If Supplied By Facility): CTDIvol = ( 38.43 ) mGy, DLP = ( 755.92 ) mGycm TECHNIQUE: Transaxial CT imaging of the brain was performed without administration of intravenous contrast material. Individualized dose optimization techniques were used for this CT. COMPARISON: No relevant priors. FINDINGS: Normal soft tissue structures. Normal calvarium. Normal size ventricles and extra-axial spaces for the patient''s age. Mild cortical atrophy for stated age.. Normal basal ganglia and thalami. Normal brainstem. Normal cerebellum. There is no intracranial hemorrhage. There are no findings of an acute ischemic infarction. Minor mucosal thickening of the right ethmoid and sphenoid sinuses CT/Brain/Head without Contrast IMPRESSION: Mild cortical atrophy for stated age. No evidence for acute bleed. If concern for acute infarct MRI recommended Electronically Signed: Flaco Marcelo MD at 16:40 EDT , Service support ,
== END ==
PROVIDERS: PCP Family Medicine; Referring Provider Family Medicine; Visit Provider Family Medicine
DX: I26.99 Other pulmonary embolism without acute cor pulmonale (principal); R55 Syncope and collapse
CPT/HCPCS: 70450

== ENCOUNTER → 2021-02-19 | Outpatient (CLI) | payer BC, SELFPAY | END | disposition home or self-care (01) | LOC: LABSPEC 12:36 | PROVIDERS: PCP Family Medicine; Referring Provider Family Medicine; Visit Provider Family Medicine | DX: Z20.822 Contact with and (suspected) exposure to COVID-19 (principal) | CPT/HCPCS: 87635; U0005; U0003 ==

== ENCOUNTER → 2021-03-16 09:04 | Outpatient (CLI) | payer BC, SELFPAY ==
--- NOTE | 2021-03-16 09:06 | VDLE_ITS ---
Reason For Study: PRE OP TESTING RIGHT LEFT GSV is normal. GSV is normal. CFV is compressible, spontaneous, phasic, CFV is compressible, spontaneous, phasic, competent and demonstrates normal competent, and demonstrates normal augmentation. augmentation. FV is compressible, spontaneous, phasic, FV is compressible, spontaneous, phasic, competent and demonstrates normal competent and demonstrates normal augmentation. augmentation. POP V is compressible, spontaneous, phasic, POP V is compressible, spontaneous, phasic, competent and demonstrates normal competent and demonstrates normal augmentation. augmentation. T/P Trunk is compressible. T/P Trunk is compressible. PTV is compressible. PTV is compressible. RT PerV is compressible. LT PerV is compressible. Procedure This is a venous duplex using B-mode, color flow and spectral Doppler. Exam performed in department. The exam was diagnostic. PT had difficulty with groin compressions. VL/Venous Duplex US - Yfn Extrem Interpretation Summary No evidence for acute deep venous thrombosis bilateral lower extremities with p atent and compressible bilateral great saphenous veins. Ordering Physician: Zi Napier Referring Physician: Gigi Wilkins Performed By: Daniella Bowen, MAX, RVT
== END ==
LOC: CVS 09:05
PROVIDERS: PCP Family Medicine; Referring Provider Surgery; Visit Provider Surgery
DX: Z01.818 Encounter for other preprocedural examination (principal); Z86.718 Personal history of other venous thrombosis and embolism; Z86.711 Personal history of pulmonary embolism
CPT/HCPCS: 93970

== ENCOUNTER 2021-12-23 12:56 | Emergency (ER) | payer BC, SELFPAY ==
[2021-12-23 12:57] VITALS: BP 145/98; PULSE 130; RESP 16; TEMP 36.4; O2SAT 98; BMI 32.8
--- NOTE | 2021-12-23 13:10 | EKG12_ITS ---
Test Reason : Lower extremety Blood Pressure : / mmHG Vent. Rate : 109 BPM Atrial Rate : 109 BPM P-R Int : 154 ms QRS Dur : 088 ms QT Int : 332 ms P-R-T Axes : 053 053 031 degrees QTc Int : 447 ms Sinus tachycardia Otherwise normal ECG Confirmed by GALI HASTINGS, OSCAR ([id number]), editor trade journal UZMA THOMPSON ([id number]) on 12/28/2021 11:07:56 AM Referred By: Alphonso Confirmed By:MASTER TALBERT MD
--- NOTE | 2021-12-23 13:10 | CT_ITS ---
STUDY: CTA CHEST REASON FOR EXAM: Male, 41 years old. Dyspnea, tachycardia, prior PE RADIATION DOSAGE (If Supplied By Facility): CTDIvol = ( 14.62 ) mGy, DLP = ( 1004.81 ) mGycm TECHNIQUE: The examination was performed with the intravenous administration of IV 100mL Isovue-370. Post-processing of the angiographic images was performed, with multiplanar reformation and 3D reconstruction. Individualized dose optimization techniques were used for this CT. COMPARISON: Comparison is made with prior CT examination dated 08/13/2020. FINDINGS: Normal enhancement of the main pulmonary artery and right and left pulmonary arteries. Normal enhancement of the bilateral peripheral pulmonary arteries. There is no demonstrated pulmonary embolism. Normal thoracic aorta and visualized great vessels. There is no demonstrated aortic dissection. There are calcifications of the coronary arteries. Normal mediastinum. Normal hilar regions. Normal visualized trachea and bronchi. The lungs are well expanded. Normal pulmonary parenchyma. Normal pleura. Normal chest wall structures. Normal osseous structures. Diffuse fatty infiltration of the liver. Small hiatal hernia. CT/CTA Chest W/WO Contrast IMPRESSION: No evidence of pulmonary emboli. No acute abnormality is seen. Electronically Signed: Amos Vilchis MD at 14:30 EDT ,
[2021-12-23 13:15] VITALS: BP 160/114; PULSE 116; RESP 18; O2SAT 98
--- NOTE | 2021-12-23 13:15 | EDS_ITS ---
HPI History of Present Illness Chief Complaint: Lower Extremity Injury Detail of Chief Complaint: Dyspnea, dyspnea on exertion, right lower extremity pain Informant: patient Onset/Context/Timing Onset: Yesterday Context: Sudden Onset Timing: Continuous Quality: Dyspnea, dyspnea on exertion and left distal calf pain Location: Respiratory and right lower extremity, leg Current Severity: Mild Maximum Severity: Moderate Worsened by: Dyspnea on exertion Relieved by: Nothing Associated Symptoms Associated Symptoms: Patient states he coughed for 45 minutes today. Narrative Narrative: Patient is a 41-year-old male with history of PE and DVT. He had a PE and spite of anticoagulation with Eliquis. This occurred 3 years ago. [place] filter was placed at that time and he was transitioned to Coumadin. He states his last INR was therapeutic. His INR was assessed last week. His bilingual call center representative Dr. Elpidio Davis. He denies fever, chills night sweats. He denies upper respiratory infectious symptoms. He does report dyspnea at rest and increased dyspnea with activity. He denies pleuritic pain. He does report distal right calf pain. He also has noted bruising. He has not changed his diet. He has not been on antibiotic recently. Prior similar symptoms: Yes Recent Illness/Hospitalization: No PFSH PFSH Medical History Anxiety and depression DVT (deep venous thrombosis) HTN (hypertension) Pre-op testing Home Medications multivitamin 1 each PO DAILY 08/13/20 [History Last Taken Unknown] warfarin 7.5 mg tablet 7.5 mg PO DAILY 03/12/21 [History Last Taken Unknown] Allergy/AdvReac Type Severity Reaction Status Date / Time bee venom protein (honey bee) Allergy Severe SOB Verified 12/23/21 12:57 kiwi Allergy Angioedema Verified 12/23/21 12:57 LIDOCAINE TOPICAL AdvReac Other Uncoded 12/23/21 12:57 Surgical History History of hand surgery History of hernia repair History of inferior vena caval filter placement History of vasectomy Social History (Updated 12/23/21 @ 13:[address] John Werner MD) household members: spouse Smoking Status: Never smoker alcohol intake: current alcohol intake frequency: holidays/special occasions only substance use type: does not use ROS ROS ED Constitutional Constitutional ED: Denies chills, fever(s), subjective, sweats or weight loss Eyes Eyes: Denies blurry vision, change in vision or diplopia ENT ENT ED: Denies ear pain, rhinorrhea or sore throat Cardiovascular Cardiovascular: Reports palpitations and racing heartbeat; Denies chest pain, orthopnea or paroxysmal nocturnal dyspnea Respiratory/Chest Respiratory/Chest: Reports cough, dyspnea and dyspnea on exertion; Denies orthopnea, paroxysmal nocturnal dyspnea or sputum Gastrointestinal Gastrointestinal: Denies abdominal pain, constipation, diarrhea, melena, nausea or vomiting Genitourinary Genitourinary ED: Denies dysuria, hematuria or urinary frequency Musculoskeletal Musculoskeletal: Denies arthralgias, back pain, myalgias or neck pain Integumentary Denies abscess or rash Neurologic Neurologic: Denies headache(s), paresthesias or weakness Psychiatric Psychiatric: Denies anxiety or depression Endocrine Endocrinology: Denies cold intolerance or heat intolerance Hematologic/Lymphatic Hematologic/Lymphatic: Reports easy bruising; Denies anemia or easy bleeding EXAM Physical Exam Const Vital Signs: 12/23/21 12:57 12/23/21 13:15 12/23/21 14:11 Temperature 97.6 F L Temperature Source Temporal Pulse Rate 130 H 116 H 108 H Respiratory Rate 16 18 20 H Blood Pressure 145/98 H 160/114 H 131/86 H Blood Pressure Mean 113 129 101 Pulse Ox 98 98 95 Oxygen Delivery Method Room Air Room Air Room Air 12/23/21 15:00 Temperature Temperature Source Pulse Rate 102 H Respiratory Rate 18 Blood Pressure 129/89 H Blood Pressure Mean 102 Pulse Ox 98 Oxygen Delivery Method Room Air Positive well nourished and well developed General Appearance ED: well developed and NAD; Negative for pallor HEENT Reports moist mucous membranes Negative for trauma or tenderness Eyes PERRL and EOMs intact bilaterally General Eye ED: Negative for pale conjunctiva Neck no lymphadenopathy, supple and no JVD Chest Wall inspection of chest normal and palpation of chest normal Resp No normal respiratory effort and clear to auscultation bilaterally Cardio regular rhythm, S1 normal heart sound, S2 normal heart sound and no murmurs Rate: tachycardic GI normal to inspection, nondistended, normoactive bowel sounds, non-tender, non- distended and hepatosplenomegaly Palpation: soft Back/Spine no CVA tenderness Cervical Spine: Negative for cervical spine tenderness Thoracic Spine / Upper Back: Negative for thoracic spinal tenderness Lumbar Spine / Lower Back: Negative for lumbar spinal tenderness Extremity normal to inspection Extremity Narrative: There is tenderness where the gastrocnemius comes to an end distally and begins to form the Achilles tendon. There is no palpable cords. There is no leg vein distention. There is no tenderness on the distribution deep venous system. DP and PT pulse are palpable. There is no pain the patient in the inguinal area and there is no lymphadenopathy. General Extremety ED: Yes tenderness; Negative for edema General Extremity: Negative for edema Neuro oriented x3, CN's II-XII intact bilaterally and no sensory deficits noted Sensorium / Orientation: alert Motor Exam: strength 5/5 throughout Psych mental status grossly normal Skin no rashes or lesions noted, no wounds and skin turgor normal General Skin Exam: Negative for jaundice or pallor MDM MDM MDM Narrative Medical decision making narrative: With abrupt onset of shortness of breath, tachycardia dyspnea on exertion with no abnormal auscultatory findings of the lungs concern patient has a PE and spite of anticoagulation and [place] filter. Concern patient may be supratherapeutic since he has bruising easily. There is no petechiae noted his lower extremities. Appropriate blood work was ordered as well as a CTA of his chest. Because patient had dyspnea with uncertain etiology and he is a 41-year-old male troponin was obtained. Troponin is less than 3 with greater than 12 hours of symptoms. Since it is less than 3 negative predictive value is 100% therefore cardiac etiology has been ruled out. Lab Data Attestation: I reviewed the patient's lab results. Lab results narrative: CBC H&H and differential are normal. INR is 2.0 which is subtherapeutic. Creatinine is elevated from baseline at 1.31 however GFR is above 60, 64. Glucose is elevated 188. There is no history of. Lactic acid is normal. Labs: Laboratory Results - last 24 hr 12/23/21 12/23/21 12/23/21 13:23 13:23 13:23 WBC 8.5 RBC 4.97 Hgb 15.8 Hct 44.4 MCV 89.3 MCH 31.8 MCHC 35.6 RDW Std Deviation 42.8 RDW Coeff of Noah 13.2 Plt Count 259 MPV 10.5 Immature Gran % (Auto) 0.400 Neut % (Auto) 67.8 Lymph % (Auto) 21.1 [place] % (Auto) 9.2 Eos % (Auto) 0.9 Baso % (Auto) 0.6 Absolute Neuts (auto) 5.8 Absolute Lymphs (auto) 1.79 Nucleated RBC % 0 PT 22.7 H INR 2.0 Sodium 139 Potassium 3.6 Chloride 105 Carbon Dioxide 27.0 Anion Gap 7 BUN 11 Creatinine 1.31 H Estim Creat Clear Calc 75.85 Est GFR (MDRD) Af Amer 77 Est GFR (MDRD) Non-Af 64 BUN/Creatinine Ratio 8.4 L Glucose 188 H Lactic Acid Calcium 8.8 Troponin I High Sens 12/23/21 12/23/21 13:23 13:28 WBC RBC Hgb Hct MCV MCH MCHC RDW Std Deviation RDW Coeff of [place] Plt Count MPV Immature Gran % (Auto) Neut % (Auto) Lymph % (Auto) [place] % (Auto) Eos % (Auto) Baso % (Auto) Absolute Neuts (auto) Absolute Lymphs (auto) Nucleated RBC % PT INR Sodium Potassium Chloride Carbon Dioxide Anion Gap BUN Creatinine Estim Creat Clear Calc Est GFR (MDRD) Af Amer Est GFR (MDRD) Non-Af BUN/Creatinine Ratio Glucose Lactic Acid 1.5 Calcium Troponin I High Sens < 3 L Radiography Diagnostic Testing: Clinical Impression(s) from Imaging Studies Chest CTA 12/23/21 13:10 IMPRESSION: No evidence of pulmonary emboli. No acute abnormality is seen. Electronically Signed: Amos Vilchis MD at 14:30 EDT , Discharge Plan Triage Chief Complaint: Lower Extremity Injury ED Provider: John Werner Dx/Rx/DC Orders Clinical Impression: Acute dyspnea, Subtherapeutic international normalized ratio (INR), Anticoagulant long-term use, Hx of pulmonary embolus, History of deep vein thrombosis, Gastrocnemius muscle strain Instructions: ED Dyspnea Prescriptions: No Action warfarin 7.5 mg tablet 7.5 mg PO DAILY Label Comments: TAKE 1 TABLET DAILY DIRECTED multivitamin 1 EACH tablet 1 each PO DAILY Primary Care Provider: Gigi Wilkins Referrals: Gigi Wilkins MD [Primary Care Provider] - Activity Restrictions/Additional Instructions: 1. Increase Coumadin to 8 mg a day 2. Dr. Elpidio Davis's office will contact you for outpatient INR Disposition Disposition: Home, Self Care
[2021-12-23 13:34] LABS: Absolute Lymphocyte Count 1.79 X10^3/uL (0.83-4.51); Absolute Neutrophil Count 5.8 X10^3/uL (2.0-7.7); Basophil# 0.05 X10^3/uL; Basophil% 0.6 % (0-1); Eosinophil# 0.08 X10^3/uL; Eosinophils% 0.9 % (0-5); Hematocrit 44.4 % (40-54); Hemoglobin 15.8 g/dL (13.0-16.5); Lymphocyte # 1.79 X10^3/ul (0.83-4.51); Lymphocyte % 21.1 % (19-41); Mean Corp Hgb Conc 35.6 g/dL (32-36); Mean Corpuscular Hgb 31.8 pg (27.0-32.0); Mean Corpuscular Volume 89.3 fL (80-94); Mean Platelet Vol. 10.5 fl (6.2-12.0); Monocyte# 0.78 X10^3/uL; Monocyte% 9.2 % (0-10); NRBC Flagged by Analyzer 0 % (0-5); Neutrophil # 5.77 X10^3/uL (2.7-7.7); Neutrophil % 67.8 % (47-70); Platelet Count 259 K/mm3 (150-450); RBC Distribution Width CV 13.2 % (11.6-14.6); RBC Distribution Width SD 42.8 fl (35.1-43.9); Red Blood Count 4.97 M/mm3 (4.6-6.2); White Blood Count 8.5 K/mm3 (4.4-11.0)
[2021-12-23 13:42] LABS: Prothrombin Time (Protime)PT. 22.7 SECONDS (11.7-14.9)
[2021-12-23 13:47] LABS: Anion Gap 7 (5-15); BUN 11 mg/dL (7-18); BUN/Creat Ratio 8.4 RATIO (10-20); Calcium,Total 8.8 mg/dL (8.5-10.1); Chloride 105 mmol/L (98-107); Creatinine, Serum 1.31 mg/dL (0.70-1.30); EST Glomerular Filtration Rate 64 mL/min (>60); Est Glom Filt Rate - Afr Amer 77 mL/min (>60); Estimated Creatinine Clearance 75.85 ml/min; Glucose 188 mg/dL (74-106); Potassium 3.6 mmol/L (3.5-5.1); Sodium Level 139 mmol/L (136-145)
[2021-12-23 14:04] LABS: Lactic Acid 1.5 mmol/L (0.4-1.9)
[2021-12-23 14:11] VITALS: BP 131/86; PULSE 108; RESP 20; O2SAT 95
[2021-12-23 15:00] VITALS: BP 129/89; PULSE 102; RESP 18; O2SAT 98
[2021-12-23 15:33] LABS: Troponin-I HS < 3 pg/mL (3.0-78.0)
[2021-12-23 15:53] VITALS: BP 139/96; PULSE 100; RESP 18; O2SAT 97
== END 2021-12-23 15:53 | disposition home or self-care (01) ==
PROVIDERS: Emergency Provider Emergency Medicine; PCP Family Medicine; Visit Provider Emergency Medicine
DX: S86.112A Strain of other muscle(s) and tendon(s) of posterior muscle group at lower leg level, left leg, initial encounter (principal); R06.00 Dyspnea, unspecified; M79.661 Pain in right lower leg; I10 Essential (primary) hypertension; Z79.01 Long term (current) use of anticoagulants; Z86.718 Personal history of other venous thrombosis and embolism
CPT/HCPCS: 71275; 80048; 83605; 84484; 85025; 85610; 93005; 96360; 96361; 99284; J7030; Q9967; A4216

== ENCOUNTER → 2021-12-25 | Outpatient (CLI) | payer BC, SELFPAY ==
[2021-12-25 09:13] LABS: International Normalized Ratio 1.8; Prothrombin Time (Protime)PT. 20.5 SECONDS (11.7-14.9)
== END | disposition home or self-care (01) ==
LOC: LABSPEC 08:45
PROVIDERS: PCP Family Medicine; Visit Provider Internal Medicine Hematology & Oncology
DX: I82.401 Acute embolism and thrombosis of unspecified deep veins of right lower extremity (principal); Z86.718 Personal history of other venous thrombosis and embolism
CPT/HCPCS: 85610

== ENCOUNTER → 2021-12-28 | Outpatient (CLI) | payer BC, SELFPAY ==
[2021-12-28 09:14] LABS: International Normalized Ratio 2.1; Prothrombin Time (Protime)PT. 23.1 SECONDS (11.7-14.9)
== END | disposition home or self-care (01) ==
LOC: LABSPEC 08:54
PROVIDERS: PCP Family Medicine; Visit Provider Internal Medicine Hematology & Oncology
DX: Z86.718 Personal history of other venous thrombosis and embolism (principal)
CPT/HCPCS: 85610

== ENCOUNTER → 2021-12-30 | Outpatient (CLI) | payer BC, SELFPAY ==
[2021-12-30 09:04] LABS: International Normalized Ratio 2.4; Prothrombin Time (Protime)PT. 25.8 SECONDS (11.7-14.9)
== END | disposition home or self-care (01) ==
LOC: LABSPEC 08:41
PROVIDERS: PCP Family Medicine; Visit Provider Internal Medicine Hematology & Oncology
DX: Z86.718 Personal history of other venous thrombosis and embolism (principal)
CPT/HCPCS: 85610

== ENCOUNTER → 2022-01-01 | Outpatient (CLI) | payer BC, SELFPAY ==
[2022-01-01 08:58] LABS: International Normalized Ratio 2.6; Prothrombin Time (Protime)PT. 27.6 SECONDS (11.7-14.9)
== END | disposition home or self-care (01) ==
LOC: LABSPEC 08:39
PROVIDERS: PCP Family Medicine; Visit Provider Internal Medicine Hematology & Oncology
DX: I82.401 Acute embolism and thrombosis of unspecified deep veins of right lower extremity (principal)
CPT/HCPCS: 85610